=== PATIENT | male | born 1955 | race Caucasian/White ===

== ENCOUNTER 2018-08-27 09:04 | Outpatient (REF) | payer OTHER, SELFPAY ==
[2018-08-27 21:43] LABS: Anion Gap 6.1 mmol/L (3-11); BUN 16 mg/dL (7-18); CO2 30.9 mmol/L (21.0-32.0); CREATININE 0.91 mg/dL (0.70-1.30); Calcium 8.8 mg/dL (8.5-10.1); Chloride 104 mmol/L (98-107); Glucose 93 mg/dL (70-100); Potassium 4.6 mmol/L (3.5-5.1); Sodium 141 mmol/L (136-145)
[2018-08-27 22:34] LABS: Hemoglobin A1C 5.4 % (4.5-6.2)
== END 2018-08-27 09:24 ==
LOC: NCHCN 09:04
PROVIDERS: PCP Internal Medicine; Visit Provider Internal Medicine
DX: I10 Essential (primary) hypertension (principal); R73.01 Impaired fasting glucose
CPT/HCPCS: 80048; 83036

== ENCOUNTER 2019-02-04 21:19 | Outpatient (REF) | payer OTHER, SELFPAY ==
[2019-02-04 21:02] LABS: Abs Immature Grans 0.04 k/cumm (0.0-0.09); Absolute Basophil Count 0.03 k/cumm (0.0-0.2); Absolute Eosinophil Count 0.07 k/cumm (0.0-0.7); Absolute Lymphocyte Count 2.13 k/cumm (1.2-3.4); Absolute Monocyte Count 1.48 k/cumm (0.11-0.7); Absolute Neutrophil Count 10.37 k/cumm (1.2-6.7); Basophils % 0.2; Eosinophils % 0.5; HCT 37.4 % (40.0-50.0); HGB 13.1 g/dL (13.5-17.5); Immature Grans % 0.3; Lymphocytes % 15.1; Mean Corpuscular Hemoglobin 34.7 pg (27.0-33.0); Mean Corpuscular Volume 99.2 fL (80-95); Mean Platelet Volume 12.1 fL (8.0-11.0); Monocytes % 10.5; Neutrophils % 73.4; Platelet Count 205 x1000/uL (130-400); RBC 3.77 m/cumm (4.50-6.00); White Blood Cell Count 14.13 k/cumm (4.4-10.8)
[2019-02-04 21:06] LABS: Prothrombin Time 9.9 sec (9.3-11.0)
[2019-02-04 21:22] LABS: ALT 29 U/L (12-78); AST 20 U/L (15-37); Albumin 3.7 g/dL (3.4-5.0); Alkaline Phosphatase 90 U/L (46-116); BUN 16 mg/dL (7-18); Bilirubin, Total 1.7 mg/dL (0.2-1.0); CREATININE 1.01 mg/dL (0.70-1.30); Calcium 9.3 mg/dL (8.5-10.1); Chloride 103 mmol/L (98-107); Glucose 76 mg/dL (70-100); Potassium 4.5 mmol/L (3.5-5.1); Sodium 138 mmol/L (136-145); Total Protein 6.9 g/dL (6.4-8.2)
== END 2019-02-04 21:39 ==
LOC: NCHCN 21:19
PROVIDERS: PCP Internal Medicine; Visit Provider Registered Nurse
DX: K92.1 Melena (principal); R04.2 Hemoptysis
CPT/HCPCS: 80053; 85025; 85610

== ENCOUNTER 2020-02-03 18:37 | Outpatient (REF) | payer MEDICARE, SELFPAY ==
[2020-02-03 22:43] LABS: Hemoglobin A1C 5.5 % (3.8-5.6)
[2020-02-03 23:35] LABS: ALT 32 U/L (16-63); AST 28 U/L (15-37); Alkaline Phosphatase 110 U/L (46-116); Anion Gap 9.4 mmol/L (3-11); BUN 19 mg/dL (7-18); Bilirubin, Total 0.9 mg/dL (0.2-1.0); CO2 27.6 mmol/L (21.0-32.0); CREATININE 0.98 mg/dL (0.70-1.30); Calcium 9.2 mg/dL (8.5-10.1); Calculated LDL 86 mg/dL (<100); Chloride 105 mmol/L (98-107); Cholesterol 179 mg/dL (<200); Glucose 93 mg/dL (74-106); HDL Cholesterol 77 mg/dL (40-60); Sodium 142 mmol/L (136-145); Total Protein 7.6 g/dL (6.4-8.2); Triglyceride 81 mg/dL (<150)
[2020-02-05 09:45] LABS: PSA, Screening 1.6 ng/mL (0.0-4.5)
== END 2020-02-03 18:57 ==
LOC: NCHCN 18:37
PROVIDERS: PCP Internal Medicine; Visit Provider Internal Medicine
DX: R73.03 Prediabetes (principal); I10 Essential (primary) hypertension; I48.0 Paroxysmal atrial fibrillation; I83.10 Varicose veins of unspecified lower extremity with inflammation; Z12.5 Encounter for screening for malignant neoplasm of prostate; E78.5 Hyperlipidemia, unspecified
CPT/HCPCS: 80053; 80061; 84153; 83036

== ENCOUNTER 2020-07-08 13:46 | Outpatient (REF) | payer MEDICARE, SELFPAY ==
[2020-07-08 22:42] LABS: Abs Immature Grans 0.03 10^3/uL (0.0-0.06); Absolute Basophil Count 0.05 10^3/uL (0.0-0.2); Absolute Eosinophil Count 0.03 10^3/uL (0.0-0.7); Absolute Lymphocyte Count 1.42 10^3/uL (1.2-3.4); Absolute Monocyte Count 1.32 10^3/uL (0.1-0.8); Absolute Neutrophil Count 6.14 10^3/uL (1.2-6.7); Basophils % 0.6; Eosinophils % 0.3; HCT 40.8 % (40.0-50.0); HGB 14.8 g/dL (13.5-17.5); Immature Grans % 0.3; Lymphocytes % 15.8; MCH 37.6 pg (27.0-33.0); MCHC 36.3 % (32.0-36.0); MCV 103.6 fL (80-95); MPV 10.1 fL (8.0-11.0); Monocytes % 14.7; Neutrophils % 68.3; Nucleated RBC 0 %; Platelet Count 256 10^3/uL (130-400); RBC 3.94 10^6/uL (4.36-5.78); RDW 14.3 % (11.8-14.1); RDW-SD 53.2 fL; WBC 8.99 10^3/uL (4.4-10.8)
[2020-07-08 22:44] LABS: ALT 36 U/L (16-63); AST 41 U/L (15-37); Albumin 3.8 g/dL (3.4-5.0); Alkaline Phosphatase 118 U/L (46-116); Anion Gap 9.2 mmol/L (3-11); BUN 13 mg/dL (7-18); Bilirubin, Total 0.6 mg/dL (0.2-1.0); CO2 26.8 mmol/L (21.0-32.0); CREATININE 0.99 mg/dL (0.70-1.30); Calcium 8.8 mg/dL (8.5-10.1); Chloride 103 mmol/L (98-107); Glucose 80 mg/dL (74-106); NT-proBNP 1108 pg/mL (<300); Sodium 139 mmol/L (136-145); TSH 1.48 uIU/mL (0.36-3.74); Total Protein 7.7 g/dL (6.4-8.2)
== END 2020-07-08 14:06 ==
LOC: NCHCN 13:46
PROVIDERS: PCP Internal Medicine; Visit Provider Internal Medicine
DX: I50.9 Heart failure, unspecified (principal); R06.00 Dyspnea, unspecified
CPT/HCPCS: 80053; 83880; 84443; 85025

== ENCOUNTER 2020-07-13 21:50 | Outpatient (REF) | payer MEDICARE, SELFPAY ==
[2020-07-13 22:30] LABS: Anion Gap 5.9 mmol/L (3-11); BUN 22 mg/dL (7-18); CO2 28.1 mmol/L (21.0-32.0); CREATININE 1.21 mg/dL (0.70-1.30); Chloride 104 mmol/L (98-107); Estimated GFR 59.82 (mL/min/1.73m2); Glucose 81 mg/dL (74-106); NT-proBNP 559 pg/mL (<300); Potassium 4.5 mmol/L (3.5-5.1); Sodium 138 mmol/L (136-145)
== END 2020-07-13 22:10 ==
LOC: NCHCN 21:50
PROVIDERS: PCP Internal Medicine; Visit Provider Internal Medicine
DX: I11.0 Hypertensive heart disease with heart failure (principal); I50.9 Heart failure, unspecified
CPT/HCPCS: 80048; 83880

== ENCOUNTER 2020-07-21 20:50 | Outpatient (REF) | payer MEDICARE, SELFPAY ==
[2020-07-21 23:24] LABS: Anion Gap 7.5 mmol/L (3-11); BUN 16 mg/dL (7-18); CO2 28.5 mmol/L (21.0-32.0); CREATININE 1.34 mg/dL (0.70-1.30); Calcium 9.4 mg/dL (8.5-10.1); Chloride 104 mmol/L (98-107); Estimated GFR 53.17 (mL/min/1.73m2); Glucose 89 mg/dL (74-106); Sodium 140 mmol/L (136-145)
== END 2020-07-21 21:10 ==
LOC: NCHCN 20:50
PROVIDERS: PCP Internal Medicine; Visit Provider Internal Medicine
DX: I50.9 Heart failure, unspecified (principal)
CPT/HCPCS: 80048

== ENCOUNTER 2020-09-03 11:24 | Outpatient (REF) | payer MEDICARE, SELFPAY ==
[2020-09-03 20:44] LABS: Anion Gap 6.6 mmol/L (3-11); BUN 27 mg/dL (7-18); CO2 28.4 mmol/L (21.0-32.0); CREATININE 1.57 mg/dL (0.70-1.30); Calcium 8.9 mg/dL (8.5-10.1); Chloride 105 mmol/L (98-107); Estimated GFR 44.29 (mL/min/1.73m2); Glucose 84 mg/dL (74-106); Potassium 4.3 mmol/L (3.5-5.1); Sodium 140 mmol/L (136-145)
== END 2020-09-03 11:44 ==
LOC: NCHCN 11:24
PROVIDERS: PCP Internal Medicine; Visit Provider Internal Medicine
DX: I10 Essential (primary) hypertension (principal)
CPT/HCPCS: 80048

== ENCOUNTER 2020-09-07 20:45 | Outpatient (REF) | payer MEDICARE, SELFPAY ==
[2020-09-08 13:11] LABS: Anion Gap 8.7 mmol/L (3-11); BUN 33 mg/dL (7-18); CO2 29.3 mmol/L (21.0-32.0); CREATININE 1.91 mg/dL (0.70-1.30); Calcium 9.2 mg/dL (8.5-10.1); Chloride 101 mmol/L (98-107); Estimated GFR 35.32 (mL/min/1.73m2); Glucose 111 mg/dL (74-106); Potassium 3.8 mmol/L (3.5-5.1); Sodium 139 mmol/L (136-145)
== END 2020-09-07 21:05 ==
LOC: NCHCN 20:45
PROVIDERS: PCP Internal Medicine; Visit Provider Internal Medicine
DX: I50.9 Heart failure, unspecified (principal); J44.9 Chronic obstructive pulmonary disease, unspecified; I48.91 Unspecified atrial fibrillation
CPT/HCPCS: 80048

== ENCOUNTER 2020-09-16 20:05 | Outpatient (REF) | payer MEDICARE, SELFPAY ==
[2020-09-16 22:03] LABS: Anion Gap 9.3 mmol/L (3-11); BUN 29 mg/dL (7-18); CO2 25.7 mmol/L (21.0-32.0); CREATININE 1.72 mg/dL (0.70-1.30); Calcium 9.7 mg/dL (8.5-10.1); Chloride 103 mmol/L (98-107); Estimated GFR 39.86 (mL/min/1.73m2); Glucose 98 mg/dL (74-106); Potassium 4.1 mmol/L (3.5-5.1); Sodium 138 mmol/L (136-145)
[2020-09-16 22:08] LABS: INR 1.4 (0.9-1.1); Prothrombin Time 13.9 sec (9.3-11.0)
== END 2020-09-16 20:25 ==
LOC: NCHCN 20:05
PROVIDERS: PCP Internal Medicine; Visit Provider Internal Medicine
DX: I10 Essential (primary) hypertension (principal); I50.9 Heart failure, unspecified; R04.2 Hemoptysis; R74.01 Elevation of levels of liver transaminase levels
CPT/HCPCS: 80048; 85610

== ENCOUNTER 2020-09-28 20:58 | Outpatient (REF) | payer MEDICARE, SELFPAY ==
[2020-09-28 22:12] LABS: Anion Gap 9.8 mmol/L (3-11); BUN 26 mg/dL (7-18); CO2 26.2 mmol/L (21.0-32.0); CREATININE 2.3 mg/dL (0.70-1.30); Chloride 106 mmol/L (98-107); Glucose 118 mg/dL (74-106); Potassium 4.3 mmol/L (3.5-5.1); Sodium 142 mmol/L (136-145)
== END 2020-09-28 20:59 | disposition home or self-care (01) ==
LOC: NCHCN 20:58
PROVIDERS: PCP Internal Medicine; Visit Provider Internal Medicine
DX: I50.9 Heart failure, unspecified (principal)
CPT/HCPCS: 80048

== ENCOUNTER 2020-10-07 22:43 | Outpatient (REF) | payer MEDICARE, SELFPAY ==
[2020-10-07 22:37] LABS: Anion Gap 9.5 mmol/L (3-11); BUN 32 mg/dL (7-18); CO2 28.5 mmol/L (21.0-32.0); CREATININE 2.1 mg/dL (0.70-1.30); Calcium 9.7 mg/dL (8.5-10.1); Chloride 103 mmol/L (98-107); Estimated GFR 31.66 (mL/min/1.73m2); Glucose 91 mg/dL (74-106); Potassium 4.7 mmol/L (3.5-5.1); Sodium 141 mmol/L (136-145)
== END 2020-10-07 22:44 | disposition home or self-care (01) ==
LOC: NCHCN 22:43
PROVIDERS: PCP Internal Medicine; Visit Provider Internal Medicine
DX: I50.9 Heart failure, unspecified (principal); N17.9 Acute kidney failure, unspecified
CPT/HCPCS: 80048

== ENCOUNTER 2020-10-14 19:49 | Outpatient (REF) | payer MEDICARE, SELFPAY ==
[2020-10-14 22:16] LABS: Anion Gap 11.2 mmol/L (3-11); BUN 32 mg/dL (7-18); CO2 25.8 mmol/L (21.0-32.0); CREATININE 1.9 mg/dL (0.70-1.30); Calcium 9.2 mg/dL (8.5-10.1); Chloride 105 mmol/L (98-107); Estimated GFR 35.54 (mL/min/1.73m2); Glucose 105 mg/dL (74-106); Potassium 4.9 mmol/L (3.5-5.1); Sodium 142 mmol/L (136-145)
== END 2020-10-14 19:50 | disposition home or self-care (01) ==
LOC: NCHCN 19:49
PROVIDERS: PCP Internal Medicine; Visit Provider Internal Medicine
DX: N17.8 Other acute kidney failure (principal)
CPT/HCPCS: 80048

== ENCOUNTER 2020-10-19 15:36 | Outpatient (REF) | payer MEDICARE, SELFPAY ==
[2020-10-19 21:51] LABS: BUN 30 mg/dL (7-18); CREATININE 1.7 mg/dL (0.70-1.30); Calcium 9.1 mg/dL (8.5-10.1); Chloride 105 mmol/L (98-107); Glucose 84 mg/dL (74-106); Potassium 4.6 mmol/L (3.5-5.1); Sodium 140 mmol/L (136-145)
== END 2020-10-19 15:37 | disposition home or self-care (01) ==
LOC: NCHCN 15:36
PROVIDERS: PCP Internal Medicine; Visit Provider Internal Medicine
DX: I50.9 Heart failure, unspecified (principal)
CPT/HCPCS: 80048

== ENCOUNTER 2020-11-19 11:20 | Outpatient (REF) | payer MEDICARE, SELFPAY ==
[2020-11-19 14:23] LABS: ALT 33 U/L (16-63); AST 22 U/L (15-37); Albumin 3.7 g/dL (3.4-5.0); Alkaline Phosphatase 88 U/L (46-116); Anion Gap 10.3 mmol/L (3-11); BUN 23 mg/dL (7-18); Bilirubin, Total 0.6 mg/dL (0.2-1.0); CO2 21.7 mmol/L (21.0-32.0); CREATININE 1.8 mg/dL (0.70-1.30); Chloride 109 mmol/L (98-107); Estimated GFR 37.82 (mL/min/1.73m2); Glucose 111 mg/dL (74-106); Potassium 4.9 mmol/L (3.5-5.1); Sodium 141 mmol/L (136-145); Total Protein 6.9 g/dL (6.4-8.2)
== END 2020-11-19 11:21 | disposition home or self-care (01) ==
LOC: NCHCN 11:20
PROVIDERS: PCP Internal Medicine; Visit Provider Internal Medicine
DX: N18.9 Chronic kidney disease, unspecified (principal)
CPT/HCPCS: 80053

== ENCOUNTER 2020-12-22 14:29 | Outpatient (REF) | payer MEDICARE, SELFPAY ==
[2020-12-22 15:21] LABS: Anion Gap 9.7 mmol/L (3-11); BUN 18 mg/dL (7-18); CO2 26.3 mmol/L (21.0-32.0); CREATININE 1.2 mg/dL (0.70-1.30); Calcium 9.2 mg/dL (8.5-10.1); Chloride 106 mmol/L (98-107); Glucose 90 mg/dL (74-106); Potassium 4.8 mmol/L (3.5-5.1); Sodium 142 mmol/L (136-145)
== END 2020-12-22 14:30 | disposition home or self-care (01) ==
LOC: NCHCN 14:29
PROVIDERS: PCP Internal Medicine; Visit Provider Internal Medicine
DX: I10 Essential (primary) hypertension (principal); N18.9 Chronic kidney disease, unspecified; I50.9 Heart failure, unspecified
CPT/HCPCS: 80048

== ENCOUNTER 2021-02-18 09:15 | Outpatient (REF) | payer MEDICARE, SELFPAY ==
[2021-02-18 13:38] LABS: Anion Gap 9.5 mmol/L (3-11); BUN 17 mg/dL (7-18); CO2 28.5 mmol/L (21.0-32.0); CREATININE 1.1 mg/dL (0.70-1.30); Calcium 9.1 mg/dL (8.5-10.1); Chloride 104 mmol/L (98-107); Glucose 103 mg/dL (74-106); Potassium 4.3 mmol/L (3.5-5.1); Sodium 142 mmol/L (136-145)
== END 2021-02-18 09:16 | disposition home or self-care (01) ==
LOC: NCHCN 09:15
PROVIDERS: PCP Internal Medicine; Visit Provider Internal Medicine
DX: I11.0 Hypertensive heart disease with heart failure (principal); I50.9 Heart failure, unspecified
CPT/HCPCS: 80048

== ENCOUNTER 2021-09-30 18:42 | Outpatient (REF) | payer MEDICARE, SELFPAY ==
[2021-09-30 21:31] LABS: Abs Immature Grans 0.02 10^3/uL (0.0-0.06); Absolute Basophil Count 0.09 10^3/uL (0.0-0.2); Absolute Eosinophil Count 0.37 10^3/uL (0.0-0.7); Absolute Lymphocyte Count 2.92 10^3/uL (1.2-3.4); Absolute Monocyte Count 0.84 10^3/uL (0.1-0.8); Absolute Neutrophil Count 6.03 10^3/uL (1.2-6.7); Basophils % 0.9; Eosinophils % 3.6; HCT 38.2 % (40.0-50.0); HGB 13.4 g/dL (13.5-17.5); Immature Grans % 0.2; Lymphocytes % 28.4; MCH 33.8 pg (27.0-33.0); MCHC 35.1 % (32.0-36.0); MCV 96.2 fL (80-95); MPV 10.8 fL (8.0-11.0); Monocytes % 8.2; Neutrophils % 58.7; Nucleated RBC 0 %; Platelet Count 309 10^3/uL (130-400); RBC 3.97 10^6/uL (4.36-5.78); RDW 16.6 % (11.8-14.1); RDW-SD 46.4 fL; WBC 10.27 10^3/uL (4.4-10.8)
[2021-09-30 21:46] LABS: Anion Gap 3.5 mmol/L (3-11); BUN 30 mg/dL (7-18); CO2 29.5 mmol/L (21.0-32.0); CREATININE 1.1 mg/dL (0.70-1.30); Calcium 9.3 mg/dL (8.5-10.1); Chloride 101 mmol/L (98-107); Glucose 131 mg/dL (74-106); Potassium 3.2 mmol/L (3.5-5.1); Sodium 134 mmol/L (136-145)
== END 2021-09-30 18:43 | disposition home or self-care (01) ==
LOC: NCHCN 18:42
PROVIDERS: PCP Internal Medicine; Visit Provider Internal Medicine
DX: I10 Essential (primary) hypertension (principal); Z51.81 Encounter for therapeutic drug level monitoring
CPT/HCPCS: 80048; 85025

== ENCOUNTER 2021-11-01 15:58 | Outpatient (REF) | payer MEDICARE, SELFPAY ==
[2021-11-01 21:50] LABS: Anion Gap 9.1 mmol/L (3-11); BUN 26 mg/dL (7-18); CO2 26.9 mmol/L (21.0-32.0); Calcium 9.2 mg/dL (8.5-10.1); Chloride 104 mmol/L (98-107); Glucose 112 mg/dL (74-106); Sodium 140 mmol/L (136-145)
== END 2021-11-01 15:59 | disposition home or self-care (01) ==
LOC: NCHCN 15:58
PROVIDERS: PCP Internal Medicine; Visit Provider Internal Medicine
DX: I10 Essential (primary) hypertension (principal); E78.5 Hyperlipidemia, unspecified
CPT/HCPCS: 80048

== ENCOUNTER 2022-06-08 18:50 | Outpatient (REF) | payer MEDICARE, SELFPAY ==
[2022-06-08 15:39] LABS: HCT 40.5 % (40.0-50.0); HGB 13.7 g/dL (13.5-17.5); MCH 32.9 pg (27.0-33.0); MCHC 33.8 % (32.0-36.0); MCV 97 fL (80-95); MPV 10.5 fL (8.0-11.0); Platelet Count 339 10^3/uL (130-400); RBC 4.17 10^6/uL (4.36-5.78); RDW 17.2 % (11.8-14.1); RDW-SD 48.5 fL; WBC 8.83 10^3/uL (4.4-10.8)
[2022-06-08 16:04] LABS: Anion Gap 6.1 mmol/L (3-11); BUN 26 mg/dL (7-18); CO2 29.9 mmol/L (21.0-32.0); Calcium 9.2 mg/dL (8.5-10.1); Calculated LDL 77 mg/dL (<100); Chloride 106 mmol/L (98-107); Cholesterol 146 mg/dL (<200); Estimated GFR 81.47 (mL/min/1.73m2); Glucose 90 mg/dL (74-106); HDL Cholesterol 57 mg/dL (40-60); Potassium 4.3 mmol/L (3.5-5.1); Sodium 142 mmol/L (136-145); Triglyceride 64 mg/dL (<150)
== END 2022-06-08 18:51 | disposition home or self-care (01) ==
LOC: NCHCN 18:50
PROVIDERS: PCP Internal Medicine; Visit Provider Internal Medicine
DX: E78.5 Hyperlipidemia, unspecified (principal); Z51.81 Encounter for therapeutic drug level monitoring; I10 Essential (primary) hypertension
CPT/HCPCS: 80048; 80061; 85027

== ENCOUNTER 2022-07-26 12:43 | Outpatient (REF) | payer MEDICARE, SELFPAY ==
[2022-07-26 15:26] LABS: Anion Gap 7.3 mmol/L (3-11); BUN 22 mg/dL (7-18); CO2 29.7 mmol/L (21.0-32.0); CREATININE 1.8 mg/dL (0.70-1.30); Calcium 8.9 mg/dL (8.5-10.1); Chloride 100 mmol/L (98-107); Estimated GFR 40.24 (mL/min/1.73m2); Glucose 111 mg/dL (74-106); Potassium 4.4 mmol/L (3.5-5.1); Sodium 137 mmol/L (136-145)
== END 2022-07-26 12:44 | disposition home or self-care (01) ==
LOC: NCHCN 12:43
PROVIDERS: PCP Internal Medicine; Visit Provider Nurse Practitioner Family
DX: J18.9 Pneumonia, unspecified organism (principal); I48.0 Paroxysmal atrial fibrillation
CPT/HCPCS: 80048

== ENCOUNTER 2022-08-09 16:42 | Outpatient (REF) | payer MEDICARE, SELFPAY ==
[2022-08-09 20:51] LABS: Anion Gap 7.6 mmol/L (3-11); BUN 23 mg/dL (7-18); CO2 28.4 mmol/L (21.0-32.0); CREATININE 1.4 mg/dL (0.70-1.30); Calcium 9.4 mg/dL (8.5-10.1); Chloride 100 mmol/L (98-107); Estimated GFR 54.41 (mL/min/1.73m2); Glucose 116 mg/dL (74-106); Potassium 4.5 mmol/L (3.5-5.1); Sodium 136 mmol/L (136-145)
== END 2022-08-09 16:43 | disposition home or self-care (01) ==
LOC: NCHCN 16:42
PROVIDERS: PCP Internal Medicine; Visit Provider Nurse Practitioner Family
DX: I10 Essential (primary) hypertension (principal); J44.9 Chronic obstructive pulmonary disease, unspecified
CPT/HCPCS: 80048

== ENCOUNTER 2022-09-05 13:29 | Outpatient (REF) | payer MEDICARE, SELFPAY ==
[2022-09-05 15:48] LABS: Anion Gap 8.2 mmol/L (3-11); BUN 23 mg/dL (7-18); CO2 28.8 mmol/L (21.0-32.0); Calcium 9.5 mg/dL (8.5-10.1); Chloride 102 mmol/L (98-107); Estimated GFR 81.47 (mL/min/1.73m2); Glucose 75 mg/dL (74-106); Potassium 3.4 mmol/L (3.5-5.1); Sodium 139 mmol/L (136-145)
== END 2022-09-05 13:30 | disposition home or self-care (01) ==
LOC: NCHCN 13:29
PROVIDERS: PCP Internal Medicine; Visit Provider Internal Medicine
DX: I10 Essential (primary) hypertension (principal); E87.6 Hypokalemia
CPT/HCPCS: 80048

== ENCOUNTER 2022-10-07 11:29 | Outpatient (REF) | payer MEDICARE, SELFPAY ==
[2022-10-07 14:28] LABS: Anion Gap 9.8 mmol/L (3-11); BUN 23 mg/dL (7-18); CO2 25.2 mmol/L (21.0-32.0); CREATININE 1.1 mg/dL (0.70-1.30); Calcium 9.5 mg/dL (8.5-10.1); Chloride 104 mmol/L (98-107); Estimated GFR 72.67 (mL/min/1.73m2); Glucose 108 mg/dL (74-106); Potassium 3.9 mmol/L (3.5-5.1); Sodium 139 mmol/L (136-145)
== END 2022-10-07 11:30 | disposition home or self-care (01) ==
LOC: NCHCN 11:29
PROVIDERS: PCP Internal Medicine; Visit Provider Internal Medicine
DX: I10 Essential (primary) hypertension (principal); E87.6 Hypokalemia
CPT/HCPCS: 80048

== ENCOUNTER 2023-03-24 21:03 | Outpatient (REF) | payer MEDICARE, SELFPAY ==
[2023-03-24 21:32] LABS: HCT 37.8 % (40.0-50.0); HGB 12.8 g/dL (13.5-17.5); MCH 29.3 pg (27.0-33.0); MCHC 33.9 % (32.0-36.0); MCV 87 fL (80-95); MPV 10.6 fL (8.0-11.0); Platelet Count 332 10^3/uL (130-400); RBC 4.37 10^6/uL (4.36-5.78); RDW 16.8 % (11.8-14.1); RDW-SD 44.1 fL; WBC 11.14 10^3/uL (4.4-10.8)
[2023-03-24 22:27] LABS: Anion Gap 7.8 mmol/L (3-11); BUN 31 mg/dL (7-18); CO2 27.2 mmol/L (21.0-32.0); CREATININE 1.4 mg/dL (0.70-1.30); Calcium 9.4 mg/dL (8.5-10.1); Chloride 104 mmol/L (98-107); Estimated GFR 54.07 (mL/min/1.73m2); Glucose 116 mg/dL (74-106); NT-proBNP 453 pg/mL (<300); Potassium 3.7 mmol/L (3.5-5.1); Sodium 139 mmol/L (136-145)
== END 2023-03-24 21:04 | disposition home or self-care (01) ==
LOC: NCHCN 21:03
PROVIDERS: PCP Internal Medicine; Visit Provider Internal Medicine
DX: R60.0 Localized edema (principal)
CPT/HCPCS: 80048; 85027; 83880

== ENCOUNTER 2023-03-29 17:11 | Outpatient (REF) | payer MEDICARE, SELFPAY ==
[2023-03-29 16:26] LABS: Abs Immature Grans 0.04 10^3/uL (0.0-0.06); Absolute Basophil Count 0.06 10^3/uL (0.0-0.2); Absolute Eosinophil Count 0.11 10^3/uL (0.0-0.7); Absolute Monocyte Count 1.13 10^3/uL (0.1-0.8); Absolute Neutrophil Count 8.11 10^3/uL (1.2-6.7); Basophils % 0.5; Eosinophils % 0.9; HCT 43.9 % (40.0-50.0); HGB 14.8 g/dL (13.5-17.5); Immature Grans % 0.3; Lymphocytes % 22.4; MCH 28.5 pg (27.0-33.0); MCHC 33.7 % (32.0-36.0); MCV 85 fL (80-95); MPV 10.8 fL (8.0-11.0); Monocytes % 9.3; Neutrophils % 66.6; Platelet Count 369 10^3/uL (130-400); RBC 5.19 10^6/uL (4.36-5.78); RDW 16.6 % (11.8-14.1); WBC 12.17 10^3/uL (4.4-10.8)
[2023-03-29 16:33] LABS: Anion Gap 11.5 mmol/L (3-11); BUN 29 mg/dL (7-18); CO2 25.5 mmol/L (21.0-32.0); CREATININE 1.8 mg/dL (0.70-1.30); Calcium 9.9 mg/dL (8.5-10.1); Chloride 102 mmol/L (98-107); Estimated GFR 39.99 (mL/min/1.73m2); Glucose 90 mg/dL (74-106); Magnesium 2.3 mg/dL (1.8-2.4); Potassium 4.2 mmol/L (3.5-5.1); Sodium 139 mmol/L (136-145)
[2023-03-29 16:39] LABS: Absolute Lymphocyte Count 2.73 10^3/uL (1.2-3.4)
== END 2023-03-29 17:12 | disposition home or self-care (01) ==
LOC: NCHCN 17:11
PROVIDERS: PCP Internal Medicine; Visit Provider Internal Medicine
DX: I10 Essential (primary) hypertension (principal); Z11.2 Encounter for screening for other bacterial diseases; Z01.818 Encounter for other preprocedural examination; Z01.812 Encounter for preprocedural laboratory examination
CPT/HCPCS: 80048; 87081; 83735; 85025

== ENCOUNTER 2023-04-03 18:53 | Outpatient (REF) | payer MEDICARE, SELFPAY ==
[2023-04-03 21:11] LABS: Abs Immature Grans 0.04 10^3/uL (0.0-0.06); Absolute Basophil Count 0.07 10^3/uL (0.0-0.2); Absolute Eosinophil Count 0.19 10^3/uL (0.0-0.7); Absolute Lymphocyte Count 3.26 10^3/uL (1.2-3.4); Absolute Monocyte Count 1.18 10^3/uL (0.1-0.8); Basophils % 0.6; Eosinophils % 1.7; HCT 42.7 % (40.0-50.0); HGB 14.4 g/dL (13.5-17.5); Immature Grans % 0.4; Lymphocytes % 28.9; MCH 28.9 pg (27.0-33.0); MCHC 33.7 % (32.0-36.0); MCV 86 fL (80-95); MPV 10.8 fL (8.0-11.0); Monocytes % 10.5; Neutrophils % 57.9; Platelet Count 331 10^3/uL (130-400); RBC 4.99 10^6/uL (4.36-5.78); RDW 17.1 % (11.8-14.1); RDW-SD 44.9 fL; WBC 11.28 10^3/uL (4.4-10.8)
[2023-04-03 21:13] LABS: Absolute Neutrophil Count 6.53 10^3/uL (1.2-6.7)
[2023-04-03 21:23] LABS: Anion Gap 8.6 mmol/L (3-11); BUN 29 mg/dL (7-18); CO2 29.4 mmol/L (21.0-32.0); CREATININE 1.2 mg/dL (0.70-1.30); Calcium 9.8 mg/dL (8.5-10.1); Chloride 101 mmol/L (98-107); Estimated GFR 65.06 (mL/min/1.73m2); Glucose 90 mg/dL (74-106); Potassium 3.7 mmol/L (3.5-5.1); Sodium 139 mmol/L (136-145)
== END 2023-04-03 18:54 | disposition home or self-care (01) ==
LOC: NCHCN 18:53
PROVIDERS: PCP Internal Medicine; Visit Provider Internal Medicine
DX: E87.6 Hypokalemia (principal); I10 Essential (primary) hypertension; I48.91 Unspecified atrial fibrillation; Z01.818 Encounter for other preprocedural examination; Z01.812 Encounter for preprocedural laboratory examination
CPT/HCPCS: 80048; 85025

== ENCOUNTER 2023-04-28 12:25 | Outpatient (REF) | payer MEDICARE, SELFPAY ==
[2023-04-28 16:51] LABS: Anion Gap 7.9 mmol/L (3-11); BUN 22 mg/dL (7-18); CO2 27.1 mmol/L (21.0-32.0); CREATININE 1.2 mg/dL (0.70-1.30); Calcium 9.5 mg/dL (8.5-10.1); Chloride 104 mmol/L (98-107); Estimated GFR 65.06 (mL/min/1.73m2); Glucose 96 mg/dL (74-106); Potassium 5.1 mmol/L (3.5-5.1); Sodium 139 mmol/L (136-145)
== END 2023-04-28 12:26 | disposition home or self-care (01) ==
LOC: NCHCN 12:25
PROVIDERS: PCP Internal Medicine; Visit Provider Internal Medicine
DX: E87.6 Hypokalemia (principal); N18.9 Chronic kidney disease, unspecified; I10 Essential (primary) hypertension
CPT/HCPCS: 80048

== ENCOUNTER 2023-08-07 14:54 | Outpatient (REF) | payer MEDICARE, SELFPAY ==
[2023-08-07 14:43] LABS: HCT 38.5 % (40.0-50.0); HGB 12.5 g/dL (13.5-17.5); MCH 26.8 pg (27.0-33.0); MCHC 32.5 % (32.0-36.0); MCV 82 fL (80-95); MPV 10.4 fL (8.0-11.0); Platelet Count 405 10^3/uL (130-400); RBC 4.67 10^6/uL (4.36-5.78); RDW 19.6 % (11.8-14.1); RDW-SD 48.1 fL; WBC 10.24 10^3/uL (4.4-10.8)
[2023-08-07 15:03] LABS: ALT 25 U/L (16-63); AST 28 U/L (15-37); Albumin 3.7 g/dL (3.4-5.0); Alkaline Phosphatase 107 U/L (46-116); Anion Gap 7.7 mmol/L (3-11); BUN 20 mg/dL (7-18); Bilirubin, Total 0.5 mg/dL (0.2-1.0); CO2 26.3 mmol/L (21.0-32.0); CREATININE 1.2 mg/dL (0.70-1.30); Calcium 9.7 mg/dL (8.5-10.1); Calculated LDL 69 mg/dL (<100); Chloride 106 mmol/L (98-107); Cholesterol 137 mg/dL (<200); Estimated GFR 65.06 (mL/min/1.73m2); Glucose 86 mg/dL (74-106); HDL Cholesterol 50 mg/dL (40-60); Potassium 4.3 mmol/L (3.5-5.1); Sodium 140 mmol/L (136-145); Total Protein 7.8 g/dL (6.4-8.2); Triglyceride 90 mg/dL (<150)
[2023-08-08 15:16] LABS: Ferritin 35 ng/mL (26-388)
== END 2023-08-07 14:55 | disposition home or self-care (01) ==
LOC: NCHCN 14:54
PROVIDERS: PCP Internal Medicine; Visit Provider Internal Medicine
DX: D64.9 Anemia, unspecified (principal); I10 Essential (primary) hypertension; I48.91 Unspecified atrial fibrillation; E87.6 Hypokalemia
CPT/HCPCS: 80053; 80061; 85027; 82728

== ENCOUNTER 2023-12-18 12:33 | Outpatient (REF) | payer MEDICARE, SELFPAY ==
[2023-12-18 14:40] LABS: HCT 41.4 % (40.0-50.0); HGB 14.4 g/dL (13.5-17.5); MCH 30.7 pg (27.0-33.0); MCHC 34.8 % (32.0-36.0); MCV 88 fL (80-95); MPV 11.2 fL (8.0-11.0); Platelet Count 296 10^3/uL (130-400); RBC 4.69 10^6/uL (4.36-5.78); RDW 19.3 % (11.8-14.1); RDW-SD 48.2 fL; WBC 9.26 10^3/uL (4.4-10.8)
[2023-12-18 15:11] LABS: Anion Gap 8.6 mmol/L (3-11); BUN 17 mg/dL (7-18); CO2 26.4 mmol/L (21.0-32.0); CREATININE 1.2 mg/dL (0.70-1.30); Calcium 9.3 mg/dL (8.5-10.1); Chloride 105 mmol/L (98-107); Estimated GFR 65.06 (mL/min/1.73m2); Ferritin 41 ng/mL (26-388); Glucose 97 mg/dL (74-106); Potassium 4.7 mmol/L (3.5-5.1); Sodium 140 mmol/L (136-145)
== END 2023-12-18 12:34 | disposition home or self-care (01) ==
LOC: NCHCN 12:33
PROVIDERS: PCP Internal Medicine; Visit Provider Internal Medicine
DX: D64.9 Anemia, unspecified (principal); N18.31 Chronic kidney disease, stage 3a
CPT/HCPCS: 80048; 85027; 82728

== ENCOUNTER 2024-06-11 18:08 | Outpatient (REF) | payer MEDICARE, SELFPAY ==
[2024-06-11 15:17] LABS: HGB 13.6 g/dL (13.5-17.5); MCHC 32.4 % (32.0-36.0); MCV 90 fL (80-95); MPV 10.5 fL (8.0-11.0); Platelet Count 339 10^3/uL (130-400); RBC 4.69 10^6/uL (4.36-5.78); RDW 16.8 % (11.8-14.1); RDW-SD 48.3 fL; WBC 11.51 10^3/uL (4.4-10.8)
[2024-06-11 15:50] LABS: ALT 28 U/L (16-63); AST 31 U/L (15-37); Albumin 3.9 g/dL (3.4-5.0); Alkaline Phosphatase 113 U/L (46-116); Anion Gap 7.5 mmol/L (3-11); BUN 15 mg/dL (7-18); Bilirubin, Total 1.02 mg/dL (0.2-1.0); CO2 26.5 mmol/L (21.0-32.0); CREATININE 1.1 mg/dL (0.70-1.30); Calcium 9.6 mg/dL (8.5-10.1); Calculated LDL 73 mg/dL (<100); Chloride 109 mmol/L (98-107); Cholesterol 140 mg/dL (<200); Estimated GFR 71.77 (mL/min/1.73m2); Glucose 80 mg/dL (74-106); HDL Cholesterol 57 mg/dL (40-60); Potassium 4.8 mmol/L (3.5-5.1); Sodium 143 mmol/L (136-145); Total Protein 7.6 g/dL (6.4-8.2); Triglyceride 51 mg/dL (<150)
[2024-06-11 15:55] LABS: Hemoglobin A1C 5.7 % (<5.7)
== END 2024-06-11 18:09 | disposition home or self-care (01) ==
LOC: NCHCN 18:08
PROVIDERS: PCP Internal Medicine; Visit Provider Internal Medicine
DX: I10 Essential (primary) hypertension (principal); R73.03 Prediabetes
CPT/HCPCS: 80053; 80061; 85027; 83036

== ENCOUNTER 2024-07-24 16:24 | Outpatient (REF) | payer MEDICARE, SELFPAY ==
[2024-07-24 21:02] LABS: Anion Gap 8.8 mmol/L (3-11); BUN 25 mg/dL (7-18); CO2 25.2 mmol/L (21.0-32.0); CREATININE 1.7 mg/dL (0.70-1.30); Calcium 8.8 mg/dL (8.5-10.1); Chloride 110 mmol/L (98-107); Estimated GFR 42.57 (mL/min/1.73m2); Glucose 130 mg/dL (74-106); Potassium 4.7 mmol/L (3.5-5.1); Sodium 144 mmol/L (136-145)
== END 2024-07-24 16:25 | disposition home or self-care (01) ==
LOC: NCHCN 16:24
PROVIDERS: PCP Internal Medicine; Visit Provider Internal Medicine
DX: N18.31 Chronic kidney disease, stage 3a (principal)
CPT/HCPCS: 80048

== ENCOUNTER 2024-08-20 11:15 | Outpatient (REF) | payer MEDICARE, SELFPAY ==
[2024-08-20 15:24] LABS: BUN 21 mg/dL (7-18); CREATININE 1.1 mg/dL (0.70-1.30); Calcium 9.3 mg/dL (8.5-10.1); Chloride 106 mmol/L (98-107); Estimated GFR 71.77 (mL/min/1.73m2); Glucose 88 mg/dL (74-106); Potassium 4.3 mmol/L (3.5-5.1); Sodium 142 mmol/L (136-145)
== END 2024-08-20 11:16 | disposition home or self-care (01) ==
LOC: NCHCN 11:15
PROVIDERS: PCP Internal Medicine; Visit Provider Internal Medicine
DX: I10 Essential (primary) hypertension (principal)
CPT/HCPCS: 80048

== ENCOUNTER 2024-11-15 17:34 | Outpatient (REF) | payer MEDICARE, SELFPAY ==
[2024-11-15 21:21] LABS: Anion Gap 9.2 mmol/L (3-11); BUN 43 mg/dL (7-18); CO2 24.8 mmol/L (21.0-32.0); CREATININE 1.7 mg/dL (0.70-1.30); Calcium 9.5 mg/dL (8.5-10.1); Chloride 108 mmol/L (98-107); Estimated GFR 42.57 (mL/min/1.73m2); Glucose 102 mg/dL (74-106); Potassium 4.9 mmol/L (3.5-5.1); Sodium 142 mmol/L (136-145)
[2024-11-15 21:26] LABS: Hemoglobin A1C 5.8 % (<5.7)
== END 2024-11-15 17:35 | disposition home or self-care (01) ==
LOC: NCHCN 17:34
PROVIDERS: PCP Internal Medicine; Visit Provider Internal Medicine
DX: R73.03 Prediabetes (principal)
CPT/HCPCS: 80048; 83036

== ENCOUNTER 2024-12-03 11:03 | Outpatient (REF) | payer MEDICARE, SELFPAY ==
[2024-12-03 14:45] LABS: BUN 20 mg/dL (7-18); CREATININE 1.2 mg/dL (0.70-1.30); Chloride 108 mmol/L (98-107); Estimated GFR 64.65 (mL/min/1.73m2); Glucose 104 mg/dL (74-106); Potassium 4.6 mmol/L (3.5-5.1); Sodium 141 mmol/L (136-145)
== END 2024-12-03 11:04 | disposition home or self-care (01) ==
LOC: NCHCN 11:03
PROVIDERS: PCP Internal Medicine; Visit Provider Internal Medicine
DX: N18.9 Chronic kidney disease, unspecified (principal)
CPT/HCPCS: 80048

== ENCOUNTER 2024-12-24 16:34 | Outpatient (REF) | payer MEDICARE, SELFPAY ==
[2024-12-24 21:53] LABS: Anion Gap 7.8 mmol/L (3-11); BUN 24 mg/dL (7-18); CO2 24.2 mmol/L (21.0-32.0); CREATININE 1.2 mg/dL (0.70-1.30); Chloride 108 mmol/L (98-107); Estimated GFR 64.65 (mL/min/1.73m2); Glucose 106 mg/dL (74-106); Potassium 4.3 mmol/L (3.5-5.1); Sodium 140 mmol/L (136-145)
== END 2024-12-24 16:35 | disposition home or self-care (01) ==
LOC: NCHCN 16:34
PROVIDERS: PCP Internal Medicine; Visit Provider Internal Medicine
DX: N18.9 Chronic kidney disease, unspecified (principal)
CPT/HCPCS: 80048

== ENCOUNTER → 2025-01-22 14:31 | Outpatient (BNVA) | payer MEDICARE, SELFPAY | PROVIDERS: PCP Internal Medicine; Referring Provider Internal Medicine; Visit Provider Physical Therapy Assistant | DX: Z12.11 Encounter for screening for malignant neoplasm of colon (principal) | CPT/HCPCS: S0285 ==

== ENCOUNTER 2025-02-03 08:39 | Day surgery (SDC) | payer MEDICARE, SELFPAY ==
--- NOTE | 2025-02-02 20:31 | W.PM.DSUDISC ---
Date of service: 02/03/25 Discharge Plan Disposition Patient Disposition: Home Condition: Good Discharge Details Reason For Visit: screening colonoscopy Attending Provider: Chad Diaz Primary Care Provider: Tamaar Marc Home Meds and New Rx's Prescriptions: Continued Pulmicort Flexhaler 90 mcg/actuation aerosol powdr breath activated 1 inh inhalation BID omeprazole 20 mg capsule,delayed release(DR/EC) 20 mg PO DAILY magnesium 250 mg tablet 500 mg PO DAILY hydrochlorothiazide 12.5 mg capsule 12.5 mg PO DAILY ferrous gluconate 324 mg (37.5 mg iron) tablet 324 mg PO .every other day diltiazem HCl 240 mg capsule,extended release 24hr 240 mg PO DAILY atorvastatin 20 mg tablet 20 mg PO QHS Anoro Ellipta 62.5-25 mcg/actuation blister with device 1 inh inhalation DAILY albuterol sulfate 90 mcg/actuation HFA aerosol inhaler 2 puff inhalation Q6H PRN potassium chloride 10 mEq capsule, extended release 10 meq PO DAILY furosemide 20 mg tablet 20 mg PO DAILY Patient Comments: TAKE 1 TABLET BY MOUTH EVERY DAY Held Xarelto 20 mg tablet 20 mg PO DAILY Hold Instructions: Resume on 02/04/25. Rx Instructions: must administer with evening meal Discontinued polyethylene glycol 3350 17 gram/dose powder 238 g PO ONCE Qty: 238 0RF Rx Instructions: take per colonoscopy instructions bisacodyl [Dulcolax (bisacodyl)] 5 mg tablet,delayed release (DR/EC) 5 mg PO ONCE Qty: 4 0RF Rx Instructions: take per colonoscopy instructions Discharge Instructions Instructions: Diverticulosis Additional Instructions: Curt, is a pleasure meeting you today, and I hope you feel well after the colonoscopy. Things went smoothly. There is a large polyp in the ascending colon. I actually think this is probably a lipoma, rather than a true colon polyp. Lipomas are benign fat tumors that grow in all different parts of the body. If it is the case that I am correct, then nothing further will need to be done with this. If it turns out to be a different type of growth, then we will make a plan together regarding how to address it moving forward. I did several biopsies of this, which should reveal the diagnosis. Those results will take about a week or so to get back, but once I have that information, I will be in touch with recommendations. Incidentally, you also have some diverticulosis. Diverticula are little weak spots in the muscular layer of the colon wall. These cause the inside lining or mucosa to pocket or pooch outwards. Some patients experience pain with this, but many of my patients have this and have no idea that they are even there. I will attach a little bit of basic information here about typical approaches to diverticulosis. If you need anything, or have any questions at all, please do not hesitate to ask, otherwise I will be in touch once the pathology report is available. 1. If tolerated, consume a soft, low fiber diet for 1-2 days. 2[address] Do not drive, drink alcohol, operate machinery, make critical decisions, or do activities that require coordination or balance for 24 hours. 3. Because air was put into your colon during the procedure, expelling air from your rectum (passing gas or farting) is normal. 4. You may not have a bowel movement for 1-3 days because of the colonoscopy prep. This is normal. 5. Go directly to the emergency room if you notice any of the following: Develop chills (warm to touch), or if you have a thermometer and your temperature is above 101 Difficulty breathing or difficultly swallowing Persistent vomiting Severe abdominal pain, other than gas cramps Severe chest pain Black, tarry stools Any bleeding ? exceeding one tablespoon 6. Call your physician if the site where your intravenous was started becomes red, swollen, painful, and warm to touch. 7. Your physician has reviewed your pre-procedure medications. Please continue to take those medications as previously ordered. You will be given specific information/education regarding any changes to your medications before leaving. Stand Alone Forms: Anesthesia Discharge Inst., Colonoscopy Post Instructions, Vinay Levy (DSU) Activity:: Activity as Tolerated Diet:: As Tolerated Discharge Orders Discharge Orders: Discharge Order (Routine); Ordered 02/02/25 Ordered By: Chad Diaz DS: Diagnosis Discharge Diagnosis (1) Encounter for screening colonoscopy: Status: Acute Asessment and Plan: Follow-up on biopsy results
--- NOTE | 2025-02-02 20:35 | W.COLOREPORT ---
Date of service: 02/03/25 Time of Service: 11:40 Colonoscopy Report Date of procedure: 02/03/25 Pre-op diagnosis general: screening colonoscopy Post-op diagnosis procedure note: other (Ascending colon polyp, sigmoid diverticulosis) Procedure: colonoscopy with biopsy Surgeon: Chad Diaz Anesthesia Type: General:No Airway Estimated blood loss (mL): 5 Pathology: other (Ascending colon polyp) Complications: None Disposition: same day Indications: Curt is a 70 year old man who needs his next screening colonoscopy Prep: Miralax/Dulcolax Procedure Start Time: 11:01 Procedure End Time: 11:20 Retraction Time: 13 Findings: Polypoid mass in the ascending colon with features consistent with lipoma. Sigmoid diverticulosis Procedure Description: After the induction of monitored anesthetic care, and with Curt in left lateral decubitus position, I began by performing an external anorectal exam.? Perineum and skin were normal, as was the anal verge.? This appeared normal.? Next, I performed a digital rectal exam.? I did not appreciate any abnormal findings.? Next, I advanced a colonoscope into the rectal vault.? I performed retroflexion.? This was normal.? Using irrigation, I then advanced the colonoscope beyond the rectal folds and into the sigmoid colon before advancing towards the cecum.? There is extensive sigmoid diverticulosis.? The scope was noted to be in the cecum by identification of the ileocecal valve and appendiceal orifice.? I then began withdrawing the colonoscope using repeated irrigation as necessary for full evaluation of the colonic mucosa. Within the ascending colon is a large polypoid mass. Borders are quite smooth, and this appears to be submucosal in origin. Most of the features appear consistent with a lipoma. However, the top portion of the mucosa is a little bit erythematous. Cold forceps biopsies were obtained here, and I did perform a partial resection using energize snare polypectomy. The base of it, however, it is too thick to safely excise colonoscopically. Furthermore, if this is a lipoma, there is really no strong indication for complete excision. Therefore, with satisfactory specimens obtained, I continued onward with the colonoscopy. Once the scope was withdrawn to the level of the rectum, great care was taken to examine portions of the rectal folds.? Finally, the scope was withdrawn and the patient was brought to the same-day surgery recovery unit as the anesthetic wore off. ?The findings and instructions were shared with the patient prior to discharge. [place] Bowel Prep [place] Bowel Prep Right Colon: 2 Left Colon: 2 Transverse Colon: 3 Total Score: 7
[2025-02-03 09:32] VITALS: BP 165/68; PULSE 87; RESP 20; TEMP 36.3; O2SAT 95
[2025-02-03] MEDS: Lactated Ringers 1,000 ML 80 ML IV (10:39)
--- NOTE | 2025-02-03 10:42 | ANES.PREOP_ITS ---
General Info Date of Service Date Performed: 02/03/25 Height: 5 ft 9 in Weight: 107.8 kg Body Mass Index (BMI): 35.1 Surgical Procedure: Operation Date: 02/03/25 11:05 Proposed Procedure Side Surgeon emily Diaz MD Meds Allergies and Home Medications Allergies Allergy/AdvReac Type Severity Reaction Status Date / Time No Known Allergies Allergy Verified 02/03/25 09:28 Home Medication ?Medication ?Instructions ?Recorded albuterol sulfate 90 mcg/actuation 2 puff inhalation Q 6H PRN 12/17/24 aerosol inhaler atorvastatin 20 mg tablet 20 mg PO QHS 12/17/24 budesonide 90 mcg/actuation breath 1 inh inhalation BI D 12/17/24 activated powder inhaler (Pulmicort Flexhaler) diltiazem HCl 240 mg 240 mg PO DAILY 12/17/24 capsule,extended release 24 hr ferrous gluconate 324 mg (37.5 mg 324 mg PO .every oth er day 12/17/24 iron) tablet hydrochlorothiazide 12.5 mg capsule 12.5 mg PO DAILY 0 12/17/24 magnesium 250 mg tablet 500 mg PO DAILY 12/17/24 omeprazole 20 mg capsule,delayed 20 mg PO DAILY release rivaroxaban 20 mg tablet (Xarelto) 20 mg PO DAILY 11/20 05/15 umeclidinium 62.5 mcg-vilanterol 1 inh inhalation MARIBEL Y 12/17/24 25 mcg/actuation powdr for inhalation (Anoro Ellipta) potassium chloride 10 mEq 10 meq PO DAILY 01/22/25 capsule,extended release furosemide 20 mg tablet 20 mg PO DAILY lower extremi ty 01/31/25 edema Current Visit Medications: Current Medications Generic Name Dose Route Start Last Admin Trade Name Freq PRN Reason Stop Dose Admin Ringer's Solution 1,000 mls @ 80 mls/hr 02/03/25 06:00 02/03/25 10:39 IV 02/03/25 23:59 80 mls/hr INFUSION BRAULIO Administration IV Miscellaneous Supplies 1 each 02/03/25 06:00 Iv Access IV 02/03/25 23:59 DIRECTED BRAULIO Ondansetron HCl 4 mg 02/02/25 20:36 Ondansetron 4 Mg/2 Ml Vial IVP 03/04/25 20:35 Q4H PRN PRN Nausea / Vomiting Sodium Chloride 0 ml 02/03/25 06:00 Normal Saline Flush 10 Ml Syr IV 02/03/25 23:59 PRN PRN Sodium Chloride 0 ml 02/03/25 06:00 Normal Saline 10 Ml Vial IJ 02/03/25 23:59 DIRECTED PRN Sterile Water 0 ml 02/03/25 06:00 Water,Injection,Sterile 10 Ml Vial IJ 02/03/25 23:59 DIRECTED PRN PFSH Active Problems Active Problems: Problem Status Onset Code Encounter for screening colonoscopy Acute Z12.11 COPD (chronic obstructive pulmonary disease) Chronic J44.9 Atrial fibrillation Chronic I48.91 Hypertension Chronic I10 Stasis dermatitis of left lower extremity with venous ulcer due to chronic peripheral venous hypertension Acute I87.332 Chronic kidney disease, stage 3a Acute N18.31 Medical History Medical History Snoring Cardiomegaly Hyperlipidemia Alcoholic fatty liver Paroxysmal atrial fibrillation Peripheral venous insufficiency Dyspnea on exertion Former heavy tobacco smoker Anemia Edema of lower extremity Spinal stenosis in cervical region Adenomatous colon polyp (~2018) Surgical History Surgical History History of colonoscopy with polypectomy (~2018) Noris Tobacco Passive smoking exposure: No Alcohol Alcohol Intake: former Substance Use Substance use: Never Substance use type: does not use Vital Signs and Lab Results Vital Signs Most Recent Vital Signs in EMR: Most Recent Vital Signs Temp Pulse Resp BP Pulse Ox 36.3 C L 87 20 165/68 H 95 02/03/25 09:32 02/03/25 09:32 02/03/25 09:32 02/03/25 09:32 02/03/25 09:32 Anesthesia Assessment and Plan Anesthesia History Personal History: No History of Anesthesia Complications Family History: No Family History of Anesthesia Complications Exercise Tolerance Exercise Tolerance: Metabolic Equivalents>4 Pertinent Negatives Pertinent Negatives: No Symptoms of GERD Cardiac & Pulmonary Exam Cardiac Exam: Normal S1/S2 Heart Sounds Pulmonary Exam: Clear Bilateral Breath Sounds Implantable Cardiac Device Does patient have a Pacemaker or an ICD?: No Airway Exam Known Difficult Airway: No Mallampati Class: 2 Mouth Opening: Normal (> 3cm) Thyromental Distance: Less than 3 cm Neck Range of Motion: Full ROM Neck Circumference: Normal Teeth Condition: Removable Dentures/Plates Upper ASA Classification ASA Score: ASA 3 Emergency Case?: No NPO Status NPO Status: NPO Clears >2 hours, Solids >8 hours Anesthesia Plan Resuscitation Status: Full Code Anesthesia Technique: General Anesthesia Airway Planned: Natural Airway Monitors Used: Standard Monitors
[2025-02-03 10:46] VITALS: BMI 35.1
--- NOTE | 2025-02-03 11:09 | BOWEL_PTH ---
PATIENT: Curt Pineda LOC: [facility] U#:[id number] AGE/SX: 70/M ROOM: RE02/03/[address]: Chad Diaz MD : [id number] BED: DIS: 02/03/2025 SPEC #: [id number] RECD: 02/03/25 13:07 STATUS: ELISE REQ #: [id number] DEANGELO: 02/03/25 11:[address]: Chad Diaz DEPT: Surgical Specimen RECD BY: Eleni Chery ENTERED: 02/03/25 13:08 SP TYPE: Bowel OTHR DR: Tamara Marc Tissues: 1 - BIOPSY BOWEL Procedures: GROSS AND MICRO LEVEL 4 MDM2F FISH, Tissue Comments: [id number]
[2025-02-03 11:24] VITALS: BP 97/43; PULSE 60; RESP 20; TEMP 36.6; O2SAT 93
--- NOTE | 2025-02-03 11:35 | W.ANESPOSTOP ---
Postoperative Evaluation Date, Time and Location Date Performed: 02/03/25 Time Performed: 11:36 Patient Location: Day Surgery Unit Vital Signs Most Recent Imported Vital Signs: Most Recent Vital Signs Temp Pulse Resp BP Pulse Ox 36.6 C 60 20 97/43 L 93 02/03/25 11:24 02/03/25 11:24 02/03/25 11:24 02/03/25 11:24 02/03/25 11:24 Pain Score Most Recent Pain Score: Most Recent Pain Score Pain Level 0 02/03/25 11:24 Assessment Mental Status: Awake (Alert & Oriented to Patient Baseline) Airway and Respiratory Function: Patent airway with normal (patient baseline) respiratory exam Cardiovascular Function: Hemodynamically Stable Hydration Status: Adequately Hydrated Nausea & Vomiting: No Nausea or Vomiting Pain: Pt. Denies Any Pain Peripheral Nerve Block: Patient did not receive a nerve block
[2025-02-03 11:58] VITALS: BP 111/47; PULSE 64; RESP 20; TEMP 36.5; O2SAT 92
== END 2025-02-03 12:28 | disposition home or self-care (01) ==
LOC: SUR 08:39
PROVIDERS: PCP Internal Medicine; Visit Provider Surgery
PROC: 0DJD8ZZ Inspection of Lower Intestinal Tract, Via Natural or Artificial Opening Endoscopic (ICD-10-PCS; CPT 45378; principal; 2025-02-03 11:00)
DX: Z12.11 Encounter for screening for malignant neoplasm of colon (principal); J44.9 Chronic obstructive pulmonary disease, unspecified; K63.5 Polyp of colon; I10 Essential (primary) hypertension; K57.30 Diverticulosis of large intestine without perforation or abscess without bleeding
CPT/HCPCS: 45380; 88271; 88305; J2704

== ENCOUNTER 2025-04-23 15:29 | Outpatient (REF) | payer MEDICARE, SELFPAY ==
[2025-04-23 21:12] LABS: Abs Immature Grans 0.08 10^3/uL (0.0-0.06); HCT 32.4 % (40.0-50.0); HGB 9.4 g/dL (13.5-17.5); Immature Grans % 0.5 %; MCH 22.2 pg (27.0-33.0); MCHC 29.0 % (32.0-36.0); MCV 77 fL (80-95); MPV 8.9 fL (8.0-11.0); Platelet Count 440 10^3/uL (130-400); RBC 4.23 10^6/uL (4.36-5.78); RDW 23.4 % (11.8-14.1); RDW-SD 55.0 fL; WBC 17.75 10^3/uL (4.4-10.8)
[2025-04-23 21:34] LABS: Anion Gap 8.7 mmol/L (3-11); BUN 26 mg/dL (7-18); CO2 29.3 mmol/L (21.0-32.0); Calcium 8.7 mg/dL (8.5-10.1); Chloride 102 mmol/L (98-107); Estimated GFR 64.25 (mL/min/1.73m2); Glucose 69 mg/dL (74-106); Magnesium 2.7 mg/dL (1.8-2.4); Potassium 4.9 mmol/L (3.5-5.1); Sodium 140 mmol/L (136-145)
[2025-04-23 21:35] LABS: Hemoglobin A1C 5.7 % (<5.7)
[2025-04-23 21:41] LABS: Anisocytosis 2+; Hypochromasia 1+; Polychromasia Present
[2025-04-24 12:10] LABS: Iron 13 ug/dL (65-175)
[2025-04-24 12:23] LABS: Ferritin 94 ng/mL (26-388)
== END 2025-04-23 15:30 | disposition home or self-care (01) ==
LOC: NCHCN 15:29
PROVIDERS: PCP Internal Medicine; Visit Provider Internal Medicine
DX: R73.03 Prediabetes (principal); D64.9 Anemia, unspecified
CPT/HCPCS: 80048; 82728; 83036; 83540; 83735; 85025

== ENCOUNTER 2025-04-29 09:20 | Outpatient (REF) | payer MEDICARE, SELFPAY ==
[2025-04-29 14:57] LABS: Anion Gap 13.0 mmol/L (3-11); BUN 45 mg/dL (7-18); CO2 24.0 mmol/L (21.0-32.0); Calcium 9.6 mg/dL (8.5-10.1); Chloride 101 mmol/L (98-107); Estimated GFR 37.02 (mL/min/1.73m2); Glucose 86 mg/dL (74-106); Potassium 4.3 mmol/L (3.5-5.1); Sodium 138 mmol/L (136-145)
== END 2025-04-29 09:21 | disposition home or self-care (01) ==
LOC: NCHCN 09:20
PROVIDERS: PCP Internal Medicine; Visit Provider Internal Medicine
DX: I50.32 Chronic diastolic (congestive) heart failure (principal)
CPT/HCPCS: 80048

== ENCOUNTER 2025-05-05 16:58 | Outpatient (REF) | payer MEDICARE, SELFPAY ==
[2025-05-05 21:29] LABS: Anion Gap 7.1 mmol/L (3-11); BUN 40 mg/dL (7-18); CO2 29.9 mmol/L (21.0-32.0); Calcium 9.4 mg/dL (8.5-10.1); Chloride 103 mmol/L (98-107); Estimated GFR 49.16 (mL/min/1.73m2); Glucose 99 mg/dL (74-106); Potassium 4.4 mmol/L (3.5-5.1); Sodium 140 mmol/L (136-145)
== END 2025-05-05 16:59 | disposition home or self-care (01) ==
LOC: NCHCN 16:58
PROVIDERS: PCP Internal Medicine; Visit Provider Internal Medicine
DX: I50.32 Chronic diastolic (congestive) heart failure (principal)
CPT/HCPCS: 80048

== ENCOUNTER 2025-07-25 17:53 | Outpatient (REF) | payer MEDICARE, SELFPAY ==
[2025-07-25 21:35] LABS: Anion Gap 12.1 mmol/L (3-11); BUN 26 mg/dL (9-23); CO2 23.9 mmol/L (20.0-31.0); Calcium 9.6 mg/dL (8.3-10.6); Chloride 105 mmol/L (98-107); Glucose 96 mg/dL (74-106); Potassium 4.3 mmol/L (3.5-5.1); Sodium 141 mmol/L (136-145)
== END 2025-07-25 17:54 | disposition home or self-care (01) ==
LOC: NCHCN 17:53
PROVIDERS: PCP Internal Medicine; Visit Provider Internal Medicine
DX: I50.32 Chronic diastolic (congestive) heart failure (principal)
CPT/HCPCS: 80048